=== PATIENT | female | born 1970 | race American Indian/Alaskan Native ===

== ENCOUNTER 2019-01-25 10:22 | Outpatient (CLI) | payer BC ==
--- NOTE | 2019-01-25 10:53 | XRay Report ---
CHEST 2 VIEWS INDICATION: COUGH,WHEEZING,SUSPECTE RAD. COMPARISON: FINDINGS: Support devices: None. Heart: Within normal limits. Lungs/pleura: No acute air space or interstitial disease. No pneumothorax. Additional findings: None. IMPRESSION: No acute findings. Signer Name: Aj Matute Jr, MD Signed: 01/25/2019 10:49 AM Workstation Name: [id number]
== END 2019-01-25 10:23 | disposition home or self-care (01) ==
LOC: XRAY 10:22
PROVIDERS: ATTEND Chiropractor
DX: J45.909 Unspecified asthma, uncomplicated (principal)
CPT/HCPCS: 71046

== ENCOUNTER 2021-01-29 11:27 | Outpatient (CLI) | payer BC ==
[2021-01-29 12:24] LABS: Basophils # (Auto) 0.1 K/mm3 (0.0-0.1); Eosinophils # (Auto) 0.2 K/mm3 (0.0-0.4); Eosinophils % (Auto) 4.1 % (0.0-4.3); Hematocrit 42.2 % (30.3-42.9); Hemoglobin 13.4 gm/dl (10.1-14.3); Lymphocytes # (Auto) 1.8 K/mm3 (1.2-5.4); Lymphocytes % (Auto) 34.4 % (13.4-35.0); Mean Corpuscular HGB Conc 32 % (30-34); Mean Corpuscular Volume 73 fl (79-97); Monocytes # (Auto) 0.4 K/mm3 (0.0-0.8); Monocytes % (Auto) 8.3 % (0.0-7.3); Platelet Count 221 K/mm3 (140-440); Red Cell Distribution Width 17.2 % (13.2-15.2)
[2021-01-29 12:49] LABS: Blood Urea Nitrogen 14 mg/dL (7-17); Calcium 9.5 mg/dL (8.4-10.2); Chol/HDL Ratio 2.83 %; HDL Cholesterol 54 mg/dL (40-59); Hemolysis Index 3; LDL Cholesterol,Direct 97 mg/dL (50-130)
[2021-01-29 12:51] LABS: BUN/Creatinine Ratio 28
== END 2021-01-29 11:28 | disposition home or self-care (01) ==
LOC: LAB 11:27
PROVIDERS: ATTEND Obstetrics & Gynecology
DX: Z13.1 Encounter for screening for diabetes mellitus (principal); Z13.220 Encounter for screening for lipoid disorders; Z13.29 Encounter for screening for other suspected endocrine disorder; N92.6 Irregular menstruation, unspecified
CPT/HCPCS: 36415; 80048; 80061; 83036; 84443; 85025

== ENCOUNTER 2021-03-15 09:37 | Outpatient (CLI) | payer BC ==
--- NOTE | 2021-03-15 12:38 | Mammography Report ---
DIGITAL SCREENING MAMMOGRAM WITH CAD, 03/15/2021 CLINICAL INFORMATION / INDICATION: Routine screening mammography. TECHNIQUE: Digital bilateral 2D mammography was obtained in the craniocaudal and mediolateral obliqu e projections. This examination was interpreted with the benefit of Computer-Aided Detection analysis . COMPARISON: 03/11/2020, 05/04/2016 FINDINGS: Breast Density: The breasts are almost entirely fatty. No dominant mass, suspicious calcifications, or architectural distortion in either breast. IMPRESSION: No mammographic evidence of malignancy. Follow up recommendation: Routine yearly BI-RADS Category 1: Negative. A "normal" or negative report should not discourage follow up or biopsy of a clinically significant f inding. A written summary of these findings will be mailed to the patient. The patient will be entered into a mammography reporting system which will generate a reminder letter for the patient's next appointmen t at the appropriate interval. The [employer] recommends yearly mammograms starting at age 40 and continuing as l daryl as a woman is in good health. Breast MRI is recommended for women with an approximate 20-25% or greater lifetime risk of breast cancer, including women with a strong family history of breast or ova alfredo cancer or who have been treated for Hodgkin's disease. Signer Name: Julio Noel MD Signed: 03/15/2021 12:34 PM Workstation Name: [id number]
== END 2021-03-15 09:38 | disposition home or self-care (01) ==
LOC: SPVWC 09:37
PROVIDERS: ATTEND Obstetrics & Gynecology
DX: Z12.31 Encounter for screening mammogram for malignant neoplasm of breast (principal)
CPT/HCPCS: 77063; 77067

== ENCOUNTER 2021-06-29 06:09 | Day surgery (SDC) | payer BC ==
[2021-06-29] MEDS ORDERED: SODIUM CHLORIDE 0.9% 1000 ML 1,000 ML IV SCH (07:00)
--- NOTE | 2021-06-29 07:58 | Anesthesia Consultation ---
Anesthesia Consult and Med Hx Date of service: 06/29/21 - Airway Anesthetic Teeth Evaluation: Good, Caps ROM Head & Neck: Adequate Mental/Hyoid Distance: Adequate Mallampati Class: Class II Intubation Access Assessment: Probably Good - Pulmonary Exam CTA: Yes - Pre-Operative Health Status ASA Pre-Surgery Classification: ASA2 Proposed Anesthetic Plan: MAC - Pulmonary Hx Smoking: No Hx Asthma: Yes Hx Respiratory Symptoms: No SOB: No Hx Sleep Apnea: No - Cardiovascular System Hx Hypertension: No Hx Coronary Artery Disease: No Hx Angina: No - Central Nervous System Hx Neuromuscular Disorder: No Hx Seizures: No CVA: No Hx Psychiatric Problems: No - Gastrointestinal Hx Ulcer: No Hx Gastroesophageal Reflux Disease: No - Endocrine Hx Renal Disease: No Hx Liver Disease: No Hx Insulin Dependent Diabetes: No Hx Non-Insulin Dependent Diabetes: No Hx Thyroid Disease: No Hx Hypothyroidism: No - Hematic Hx Anemia: No Hx Sickle Cell Disease: No - Other Systems Hx Alcohol Use: Yes Hx Substance Use: No Hx Obesity: Yes - Additional Comments Anesthesia Medical History Comments: Patient denied previous anesthesia complicaton
--- NOTE | 2021-06-29 07:59 | Anesthesia Day of Surgery ---
Anesthesia Day of Surgery - Day of Surgery Patient Examined: Yes Patient H&P Reviewed: Yes Patient is NPO: Yes Beta Blockers: No Cardiac Clearance: No Pulmonary Clearance: No Adalberto's Test: N/A
[2021-06-29] MEDS ORDERED: LIDOCAINE MPF (2%) 20 MG/1 ML VIAL 5 ML ONE (08:46)
[2021-06-29] MEDS ORDERED: ONDANSETRON 4 MG/2 ML INJ ONE (08:46)
[2021-06-29] MEDS ORDERED: propofoL 200 MG/20 ML VIAL IV ONE (08:47)
--- NOTE | 2021-06-29 09:04 | Short Stay Summary ---
Short Stay Documentation Date of service: 06/29/21 Narrative H&P: The patient presents for high risk screening colonoscopy, her first study. FH of polyps in multiple first degree relatives- father and sisters. - History Past Medical History: No medical history Past Surgical History: No surgical history Social history: no significant social history, , lives with family - Allergies and Medications Current Medications: Allergies No Known Allergies Allergy (Unverified 04/22/18 07:41) Home Medications Medication Instructions Recorded Confirmed Last Taken Type Ibuprofen [Motrin] 600 mg PO Q8H PRN #20 tablet 04/22/18 Unknown Rx Zyrtec 10mg tab 06/24/21 Unknown History Active Medications Sodium Chloride (Nacl 0.9% 1000 Ml) 1,000 mls @ 50 mls/hr IV DIRECT JUAN Stop: 06/29/21 21:00 - Physical exam General appearance: no acute distress, well-nourished Integumentary: no rash, no growths, no abnormal pigmentation HEENT: Atraumatic, PERRLA, EOMI, Mucous membr. moist/pink Lungs: Clear to auscultation, Normal air movement Breasts: deferred Heart: Regular rate, Normal S1, Normal S2, No murmurs Gastrointestinal: normoactive bowel sounds, no tenderness, no distended, no guarding Female Genitourinary: deferred Rectal Exam: normal exam-external/orifice, normal rectal tone, no mass Extremities: no ischemia, pulses intact, pulses symmetrical, No edema, normal temperature, normal color, Full ROM Neurological: Normal gait, Normal speech, Strength at 5/5 X4 ext, Normal tone, Sensation intact, Cranial nerves 3-12 NL - Brief post op/procedure progress note Date of procedure: 06/29/21 Findings: see dictation Estimated blood loss: none Pathology: none Condition: stable - Disposition Condition at discharge: Good Disposition: 01 HOME / SELF CARE / HOMELESS - Discharge Diagnoses (1) Family history of colonic polyps Status: Acute Short Stay Discharge Plan Activity: other (no driving for 24 hours) Weight Bearing Status: Full Weight Bearing Diet: regular Follow up with: STACY GARCIA MD [Primary Care Provider] - 7 Days
--- NOTE | 2021-06-29 09:06 | Operative Report ---
Operative Report Operative Report: Date of procedure: 06/29/2021 Preprocedure diagnosis: High risk colon cancer screening. Family history of co eleanor polyps in multiple first-degree relatives. No prior colonoscopy studies Post procedure diagnosis: Normal study Procedure: Colonoscopy to the cecum Endoscopist: Dr. Esparza Anesthesia: Monitored anesthesia care per anesthesia department Estimated blood loss: 0 Medications: Monitored anesthesia care. See separate report by anesthesia for details. After careful discussion of the nature and purpose of the procedure as well as details of the technique risks benefits and alternatives the patient gave consent. Please see recent history and physical from the office. The patient was placed in the left lateral decubitus position and medicated per anesthesia. A rectal exam was performed sphincter tone was normal there were no masses palpable. The [employer] 570 scope was passed transanally and advanced under continuous direct vision without difficulty to the cecum. The colon was well prepared. The cecum was normal. The ascending colon was normal and on forward and retroflexed views. The transverse colon, descending colon, and sigmoid colon were normal. The rectum was normal on forward and retroflexed views. The procedure was well-tolerated overall and the patient was observed in recovery. Conclusions: Normal colonoscopy to the cecum. Plan: Repeat colonoscopy in 5 years. Signed electronically: Shane Esparza M.D.
[2021-06-29 10:41] VITALS: BP 128/78
--- NOTE | 2021-06-29 14:48 | Post Anesthesia Evaluation ---
- Post Anesthesia Evaluation Patient Participated: Yes Airway Patent: Yes Stable Respiratory Function: Yes Nausea/Vomiting: No Temp > 96.8F: Yes Pain Manageable: Yes Adequeate Hydration: Yes Anesthesia Complications: No Block Receding Appropriately: Not Applicable Patient on Ventilator: No
== END 2021-06-29 10:00 | disposition home or self-care (01) ==
LOC: GIO 06:09
PROVIDERS: ATTEND Internal Medicine Gastroenterology
DX: Z12.11 Encounter for screening for malignant neoplasm of colon (principal); K63.89 Other specified diseases of intestine; E66.9 Obesity, unspecified; J45.909 Unspecified asthma, uncomplicated; Z80.0 Family history of malignant neoplasm of digestive organs; Z83.71 Family history of colonic polyps; Z79.899 Other long term (current) drug therapy
CPT/HCPCS: 45378; J2405; J2704; J3490; J7030; J7120; Q0162